=== PATIENT | male | born 1995 | race Caucasian/White ===

== ENCOUNTER 2017-11-28 18:50 | Emergency (ER) | payer BC, OTHER ==
[2015-05-28 12:24] VITALS: Ht 2.5 cm; Wt 106.6 kg
[~2017-11-28] VITALS: Ht 2.5 cm; Wt 106.6 kg
[~2017-11-28 18:50] MED LIST: AMOX-559 PO; CLIN-75 PO; CLIN300C99 PO; HYDR2TAB74 PO; LOR5 PO; LOR5/325 PO; METH4TAB57 PO; MOXI400T2 PO; NO ROUTINE MEDS; PRED-1 PO; SULF-197 PO
[2017-11-28] MEDS ORDERED: NAPR-724 (18:56)
[2017-11-28] MEDS ORDERED: AMOX1TAB9 (18:56)
[2017-11-28] MEDS ORDERED: PRED20TA6 (18:56)
--- NOTE | 2017-11-28 18:58 | ER Report ---
History and Physical Time Seen By : 18:57 Hx. of Stated Complaint: PT FEELING FEVERISH WITH CHILLS PAST 3 WEEKS, COUGHING UP YELLOW MUCUS, NASAL DISCHARGE, ON AUGMENTIN FROM URGENT CARE HPI/ROS CHIEF COMPLAINT: Fever HISTORY OF PRESENT ILLNESS: 22-year-old male patient presents to the emergency room with complaint of a fever. Patient states that he hasn't seen multiple times for this. States that he has not had a fever until tonight. Prior to that he is having night sweats. He is also mostly has enlarged lymph nodes. He states that they are large however there non-tender. He denies any nausea, vomiting or diarrhea. He states that he has most recently been placed on Augmentin for possible sinusitis. He states that his heart rate is racing, that he does feel short of breath. He states that blood pressure is worse with orthostatics. He states that he had a mono test done yesterday which was negative. 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 Patient states he has had some body aches for the last couple of days. He did get a influenza vaccine. REVIEW OF SYSTEMS: Respiratory: As noted above Cardiovascular: No chest pain, no palpitations. Gastrointestinal: No vomiting, no abdominal pain. Musculoskeletal: No back pain. Allergies: Coded Allergies: No Known Drug Allergies (Verified , 09/30/16) Home Meds Active Scripts Ketorolac Tromethamine (KETOROLAC TROMETHAMINE) 10 Mg Tab, 10 MG PO Q6H, #20 TAB Prov:MARYSOULEYMANE FNP 11/28/17 Reported Medications Naproxen (NAPROXEN) 500 Mg Tablet 11/28/17 Amoxicillin/Potassium Clav (AMOX TR-K CLV 875-125 MG TAB) 1 Each Tablet 11/28/17 Discontinued Reported Medications Prednisone (PREDNISONE) 20 Mg Tablet 11/28/17 Discontinued Scripts Prednisone 10 Mg Tab (PREDNISONE 10 MG TAB) 10 Mg Tablet, 10 MG PO QDAY, #10 TAB 4 pills a day for one day, then 3 pills a day for one day, then 2 pills a day for one day, then 1 pill a day for the last day. Prov:BULL LIPSCOMB MD 05/29/15 Hydrocodone Bit/Acetaminophen (HYDROCODON-ACETAMINOPHEN 5-325) 1 Each Tablet, 1 EACH PO Q4-6H Y for pain, #0 Prov:BULL LIPSCOMB MD 05/29/15 Moxifloxacin HCl (Moxifloxacin HCl) 400 Mg Tablet, 400 MG PO QDAY, #10 Prov:BULL LIPSCOMB MD 05/29/15 Clindamycin Hcl (CLINDAMYCIN HCL) 300 Mg Capsule, 300 MG PO TID, #30 CAPSULE Take the 150mg and 300mg tablets together to make 450mg total. Prov:BULL LIPSCOMB MD 05/29/15 Clindamycin Hcl (CLINDAMYCIN HCL) 150 Mg Capsule, 150 MG PO TID, #30 CAPSULE Take the 150mg and 300mg tablets together to make 450mg total. Prov:BULL LIPSCOMB MD 05/29/15 Past Medical/Surgical History Patient has a past medical history of astigmatism. Patient has surgical history of tonsillectomy, left knee surgery. Reviewed Nurses Notes: Yes Hx Smoking: No Smoking Status: Never Smoker Constitutional Vital Sign - Last 24 Hours 11/28/17 11/28/17 11/28/17 11/28/17 18:54 18:58 19:05 19:20 Temp 99.2 Pulse 115 105 ??? Resp 20 B/P (MAP) 157/91 157/91 (113) Pulse Ox 95 97 94 O2 Delivery Room Air 11/28/17 11/28/17 11/28/17 11/28/17 19:35 19:40 19:50 20:29 Temp 98.6 Pulse 105 100 B/P (MAP) 123/77 (92) Pulse Ox 93 94 Intake and Output 11/28/17 11/28/17 11/29/17 15:00 23:00 07:00 Intake Total 1000 ml Balance 1000 ml Physical Exam General Appearance: The patient is alert, has no immediate need for airway protection and no current signs of toxicity. ENT: Tympanic membranes are pearly-wilson, auditory canals are patent, mucous membranes are moist. Respiratory: Chest is non tender, lungs are clear to auscultation. Cardiac: regular rhythm, patient is tachycardic. Gastrointestinal: Abdomen is soft and non tender, no masses, bowel sounds normal. Musculoskeletal: Neck: Neck is supple and non tender. Extremities have full range of motion and are non tender. Skin: No rashes or lesions. DIFFERENTIAL DIAGNOSIS: After history and physical exam differential diagnosis was considered for fever in adults including but not limited to pneumonia, urinary tract infection, viral syndrome, and influenza. Medical Decision Making Data Points Result Diagram: 11/28/17192111/28/171921 Laboratory Hematology Test 11/28/17 18:51 11/28/17 19:22 Urine Color Tiffanie Urine Clarity Cloudy Urine pH 5.0 pH (4.8-9.5) Urine Specific [place] 1.031 Urine Protein Negative mg/dL (NEGATIVE) Urine Glucose (UA) Negative mg/dL (NEGATIVE) Urine Ketones Negative mg/dL (NEGATIVE) Urine Blood Negative (NEGATIVE) Urine Nitrite Negative (NEGATIVE) Urine Bilirubin Negative (NEGATIVE) Urine Urobilinogen Negative mg/dL (0.2-1.9) Urine Leukocyte Esterase Negative (NEGATIVE) Urine RBC <1 /HPF (0-2/HPF) Urine WBC 3 /HPF (0-5/HPF) Urine Squamous Epithelial Cells Few /LPF (</=FEW) Urine Calcium Oxalate Crystals Few /HPF (NONE) Urine Bacteria Negative /HPF (NONE-FEW) Urine Mucus Few /HPF (NONE-FEW) Red Blood Count 5.38 M/uL (4.00-5.60) Mean Corpuscular Volume 87.0 fL (80.0-96.0) Mean Corpuscular Hemoglobin 30.3 pg (26.0-33.0) Mean Corpuscular Hemoglobin Concent 34.9 g/dL (32.0-36.0) Red Cell Distribution Width 12.9 % (11.5-14.5) Mean Platelet Volume 9.1 fL (7.2-11.1) Neutrophils (%) (Auto) % (39.4-72.5) Lymphocytes (%) (Auto) % (17.6-49.6) Monocytes (%) (Auto) % (4.1-12.4) Eosinophils (%) (Auto) % (0.4-6.7) Basophils (%) (Auto) % (0.3-1.4) Nucleated RBC Relative Count (auto) /100WBC Neutrophils # (Auto) K/uL (2.0-7.4) Lymphocytes # (Auto) K/uL (1.3-3.6) Monocytes # (Auto) K/uL (0.3-1.0) Eosinophils # (Auto) K/uL (0.0-0.5) Basophils # (Auto) K/uL (0.0-0.1) Nucleated RBC Absolute Count (auto) K/uL Neutrophils % (Manual) 61 % (39.4-72.5) Lymphocytes % (Manual) 21 % (17.6-49.6) Atypical Lymphocytes % 5 % Monocytes % (Manual) 10 % (4.1-12.4) Eosinophils % (Manual) 3 % (0.4-6.7) Basophils % (Manual) 0 % (0.3-1.4) Rose Cells 1+ Sodium Level 140 mmol/L (137-145) Potassium Level 3.8 mmol/L (3.5-5.0) Chloride Level 105 mmol/L (98-107) Carbon Dioxide Level 25 mmol/L (22-30) Blood Urea Nitrogen 11 mg/dl (9-21) Creatinine 0.80 mg/dl (0.66-1.25) Glomerular Filtration Rate Calc > 60.0 Random Glucose 82 mg/dl (75-110) Calcium Level 8.6 mg/dl (8.4-10.2) Total Bilirubin 0.9 mg/dl (0.2-1.3) Aspartate Amino Transf (AST/SGOT) 96 U/L (0-35) Alanine Aminotransferase (ALT/SGPT) 162 U/L (0-56) Alkaline Phosphatase 89 U/L (0-126) C-Reactive Protein 4.5 mg/dl (<1.0) Total Protein 7.2 gm/dl (6.3-8.2) Albumin 3.8 g/dl (3.5-5.0) HIV (1&2) Antibody Negative (NEGATIVE) Influenza Type A Antigen Negative (NEGATIVE) Influenza Type B Antigen Negative (NEGATIVE) Chemistry Test 11/28/17 18:51 11/28/17 19:22 Urine Color Tiffanie Urine Clarity Cloudy Urine pH 5.0 pH (4.8-9.5) Urine Specific [place] 1.031 Urine Protein Negative mg/dL (NEGATIVE) Urine Glucose (UA) Negative mg/dL (NEGATIVE) Urine Ketones Negative mg/dL (NEGATIVE) Urine Blood Negative (NEGATIVE) Urine Nitrite Negative (NEGATIVE) Urine Bilirubin Negative (NEGATIVE) Urine Urobilinogen Negative mg/dL (0.2-1.9) Urine Leukocyte Esterase Negative (NEGATIVE) Urine RBC <1 /HPF (0-2/HPF) Urine WBC 3 /HPF (0-5/HPF) Urine Squamous Epithelial Cells Few /LPF (</=FEW) Urine Calcium Oxalate Crystals Few /HPF (NONE) Urine Bacteria Negative /HPF (NONE-FEW) Urine Mucus Few /HPF (NONE-FEW) White Blood Count 10.4 k/uL (4.5-11.0) Red Blood Count 5.38 M/uL (4.00-5.60) Hemoglobin 16.3 g/dL (14.0-18.0) Hematocrit 46.9 % (42.0-52.0) Mean Corpuscular Volume 87.0 fL (80.0-96.0) Mean Corpuscular Hemoglobin 30.3 pg (26.0-33.0) Mean Corpuscular Hemoglobin Concent 34.9 g/dL (32.0-36.0) Red Cell Distribution Width 12.9 % (11.5-14.5) Platelet Count 169 K/uL (150-450) Mean Platelet Volume 9.1 fL (7.2-11.1) Neutrophils (%) (Auto) % (39.4-72.5) Lymphocytes (%) (Auto) % (17.6-49.6) Monocytes (%) (Auto) % (4.1-12.4) Eosinophils (%) (Auto) % (0.4-6.7) Basophils (%) (Auto) % (0.3-1.4) Nucleated RBC Relative Count (auto) /100WBC Neutrophils # (Auto) K/uL (2.0-7.4) Lymphocytes # (Auto) K/uL (1.3-3.6) Monocytes # (Auto) K/uL (0.3-1.0) Eosinophils # (Auto) K/uL (0.0-0.5) Basophils # (Auto) K/uL (0.0-0.1) Nucleated RBC Absolute Count (auto) K/uL Neutrophils % (Manual) 61 % (39.4-72.5) Lymphocytes % (Manual) 21 % (17.6-49.6) Atypical Lymphocytes % 5 % Monocytes % (Manual) 10 % (4.1-12.4) Eosinophils % (Manual) 3 % (0.4-6.7) Basophils % (Manual) 0 % (0.3-1.4) Benedict Cells 1+ Glomerular Filtration Rate Calc > 60.0 Calcium Level 8.6 mg/dl (8.4-10.2) Total Bilirubin 0.9 mg/dl (0.2-1.3) Aspartate Amino Transf (AST/SGOT) 96 U/L (0-35) Alanine Aminotransferase (ALT/SGPT) 162 U/L (0-56) Alkaline Phosphatase 89 U/L (0-126) C-Reactive Protein 4.5 mg/dl (<1.0) Total Protein 7.2 gm/dl (6.3-8.2) Albumin 3.8 g/dl (3.5-5.0) HIV (1&2) Antibody Negative (NEGATIVE) Influenza Type A Antigen Negative (NEGATIVE) Influenza Type B Antigen Negative (NEGATIVE) Urinalysis Test 11/28/17 18:51 Urine Color Tiffanie Urine Clarity Cloudy Urine pH 5.0 pH (4.8-9.5) Urine Specific [place] 1.031 Urine Protein Negative mg/dL (NEGATIVE) Urine Glucose (UA) Negative mg/dL (NEGATIVE) Urine Ketones Negative mg/dL (NEGATIVE) Urine Blood Negative (NEGATIVE) Urine Nitrite Negative (NEGATIVE) Urine Bilirubin Negative (NEGATIVE) Urine Urobilinogen Negative mg/dL (0.2-1.9) Urine Leukocyte Esterase Negative (NEGATIVE) Urine RBC <1 /HPF (0-2/HPF) Urine WBC 3 /HPF (0-5/HPF) Urine Squamous Epithelial Cells Few /LPF (</=FEW) Urine Calcium Oxalate Crystals Few /HPF (NONE) Urine Bacteria Negative /HPF (NONE-FEW) Urine Mucus Few /HPF (NONE-FEW) EKG/Imaging Imaging Examination: CHEST PA AND LAT Comparison: None. History: Fever and cough. Findings: No consolidation, nodule, or peribronchial inflammation. No pneumothorax, edema, or effusion. Cardiac and hilar contour size is within normal limits. Osseous structures are intact. IMPRESSION: Negative chest. Report Dictated By: Bobby Almanza MD at 11/28/2017 8:11 PM Report E-Signed By: Bobby Almanza MD at 11/28/2017 8:12 PM ED Course/Re-evaluation ED Course Patient was admitted to an exam room, history and physical were obtained. Differential diagnoses were considered. On examination patient does feel warm, lymph nodes aren't enlarged and nontender. Lungs are clear, heart is regular. A CBC, CMP, urinalysis, chest x-ray, CRP, blood cultures were obtained. Patient did have 3 white blood cells per high-power field on his urine. We'll go ahead and culture his urine. Blood cultures were also obtained. Patient had a normal white count with no left shift. CMP was unremarkable except the patient did have elevated AST and ALT. Chest x-ray was negative. I discussed findings with patient. I believe that we are likely looking at a virus. His is not having any improvement in his symptoms. I do have some concerns about enlarged lymph nodes that are nontender. Especially with that length of time patient has been feeling ill. I discussed my concerns with the patient and his mother. With his labs being normal I would strongly encourage following up with Dr. Chin for a lymph node biopsy. I discussed this with the patient who verbalized understanding and agreement. Decision to Disposition Date: Nov 28, 2017 Decision to Disposition Time: 21:08 Depart Departure Latest Vital Signs Vital Signs Date Time Temp Pulse Resp B/P (MAP) Pulse Ox O2 Delivery O2 Flow Rate FiO2 11/28/17 20:29 98.6 11/28/17 19:50 100 94 11/28/17 19:40 123/77 (92) 11/28/17 18:54 20 Room Air Impression: Primary Impression: Fever Additional Impressions: Viral syndrome Lymphadenopathy of head and neck Condition: Condition Unchanged Disposition: HOME OR SELF-CARE Referrals: SANTHOSH SNYDER (PCP) RADHA CHIN MD New Scripts Ketorolac Tromethamine (KETOROLAC TROMETHAMINE) 10 Mg Tab 10 MG PO Q6H, #20 TAB Prov: SOULEYMANE HERNANDEZ 11/28/17 Patient Instructions: Fever in Adults (ED), Lymphadenopathy (ED) Additional Instructions: Increase fluid intake. Get plenty of rest. Limit activity by pain. Take Tylenol as needed for fevers or pain. Follow up with Dr. Chin for lymph node biopsy. Continue with your current antibiotics. Return to the ER if condition worsens. Problem Qualifiers Primary Impression: Fever Fever type: unspecified Qualified Codes: R50.9 - Fever, unspecified SOULEYMANE HERNANDEZ Nov 28, 2017 18:58
[2017-11-28] MEDS ORDERED: NS(*) 0.9% 1000 ML BAG 1,000 ML IV ONE (19:09)
[2017-11-28 19:36] LABS: PLATELET COUNT, AUTOMATED 169 K/uL (150-450)
--- NOTE | 2017-11-28 20:16 | RADIOLOGY IMAGING REPORT ---
FACILITY: [facility] - [place] PATIENT NAME: Kai Beasley : 1995 MR: [id number] V: [id number] EXAM DATE: ORDERING PHYSICIAN: SOULEYMANE HERNANDEZ TECHNOLOGIST: Location: [facility] - [place] Patient: Kai Beasley : 1995 Visit/Account:[id number] Date of Sevice: 11/28/2017 Examination: CHEST PA AND LAT Comparison: None. History: Fever and cough. Findings: No consolidation, nodule, or peribronchial inflammation. No pneumothorax, edema, or effusio n. Cardiac and hilar contour size is within normal limits. Osseous structures are intact. IMPRESSION: Negative chest. Report Dictated By: Bobby Almanza MD at 11/28/2017 8:11 PM Report E-Signed By: Bobby Almanza MD at 11/28/2017 8:12 PM WSN:[id number]
[2017-11-28 21:20] VITALS: BP 133/71
[2017-11-28] MEDS ORDERED: KETOROLAC TROM 10 MG TAB TH PO ONE (21:25)
[2017-11-28] MEDS ORDERED: KET10 PO (21:25)
== END 2017-11-28 21:30 | disposition home or self-care (01) ==
LOC: ER 18:57
DX: B34.9 Viral infection, unspecified (principal); R59.1 Generalized enlarged lymph nodes
CPT/HCPCS: 71020; 81001; 85025; 86140; 86703; 87040; 87502; 96360; 99284; J7030; 82040; 82247; 82310; 82374; 82435; 82565; 82947; 84075; 84132; 84155; 84295; 84450; 84460; 84520

== ENCOUNTER → 2017-12-07 | Outpatient (REF) | payer BC, OTHER ==
[2015-05-28 12:24] VITALS: BMI 31.0
[~2017-12-07] MED LIST changes: +AMOX1TAB9; +KET10 PO; +NAPR-724; +PRED20TA6
== END ==
LOC: ZZSTITCHES 17:10
PROVIDERS: ATTEND Physician Assistant
DX: R59.0 Localized enlarged lymph nodes (principal); R53.83 Other fatigue
CPT/HCPCS: 86644; 86645; 86663; 86664; 86665

== ENCOUNTER 2018-04-11 21:18 | Emergency (ER) | payer BC, OTHER ==
[2015-05-28 12:24] VITALS: Wt 97.5 kg
[~2018-04-11 21:18] MED LIST changes: -NAPR-724; +NAPR500T31
--- NOTE | 2018-04-11 21:20 | ER Report ---
History and Physical Time Seen By MD: 21:20 HPI/ROS CHIEF COMPLAINT: Left arm laceration HISTORY OF PRESENT ILLNESS: 22-year-old male presents ambulatory to the ER complaining of left arm laceration. 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 Patient was sharpening a machete that fell off the table. He tried to catch it and fell and was arm. He sustained a superficial laceration just above the elbow on the upper outer arm. Patient states his tetanus status is up-to-date. Allergies: Coded Allergies: No Known Drug Allergies (Verified , 04/11/18) Home Meds Discontinued Reported Medications Naproxen (NAPROXEN) 500 Mg Tablet 11/28/17 Amoxicillin/Potassium Clav (AMOX TR-K CLV 875-125 MG TAB) 1 Each Tablet 11/28/17 Discontinued Scripts Ketorolac Tromethamine (KETOROLAC TROMETHAMINE) 10 Mg Tab, 10 MG PO Q6H, #20 TAB Prov:MONICO HERNANDEZSSJose LEMUS 11/28/17 Reviewed Nurses Notes: Yes Old Medical Records Reviewed: Yes Hx Smoking: No Smoking Status: Never Smoker Hx Substance Use Disorder: No Constitutional Vital Sign - Last 24 Hours 04/11/18 21:21 Temp 97.7 Pulse 84 Resp 16 B/P (MAP) 123/66 Pulse Ox 96 Physical Exam General appearance: Alert no distress. Respiratory: Chest is non tender, lungs are clear to auscultation. Cardiac: Regular rate and rhythm Extremities: Examination of left arm reveals a transverse 2.0 cm laceration just above the crease of the elbow on the outer aspect of the upper arm. Distal neurovascular functions intact. DIFFERENTIAL DIAGNOSIS: After history and physical exam differential diagnosis was considered for arm laceration, tendon laceration, foreign body. Medical Decision Making ED Course/Re-evaluation ED Course Procedure: Laceration repair. Verbal consent was obtained from the patient. The 2.0 cm laceration on the left upper arm was anesthetized in the usual fashion. The wound was scrubbed, draped and explored to its base with a gloved finger. There were no deep structures involved. No tendon injury was identified. The wound was repaired with 4-0 Prolene 3 sutures. The wound repair was simple. The procedure was performed by myself. Wound care was discussed, suture removal will be in 10 days. Decision to Disposition Date: April 11, 2018 Decision to Disposition Time: 21:49 Depart Departure Latest Vital Signs Vital Signs Date Time Temp Pulse Resp B/P (MAP) Pulse Ox O2 Delivery O2 Flow Rate FiO2 04/11/18 21:21 97.7 84 16 123/66 96 Impression: Primary Impression: Laceration of upper arm Condition: Improved Disposition: HOME OR SELF-CARE New Scripts No Active Prescriptions or Reported Meds Patient Instructions: Laceration (ED) Additional Instructions: Watch for signs of infection Perform daily wound care Have sutures removed in 10 days Problem Qualifiers Primary Impression: Laceration of upper arm Encounter type: initial encounter Laterality: left Qualified Codes: S41.112A - Laceration without foreign body of left upper arm, initial encounter RADHA MAR DO April 11, 2018 21:20
[2018-04-11 21:21] VITALS: BP 123/66
== END 2018-04-11 21:55 | disposition home or self-care (01) ==
LOC: ER 21:23
DX: S41.112A Laceration without foreign body of left upper arm, initial encounter (principal)
CPT/HCPCS: 99283